=== PATIENT | female | born 1975 | race Caucasian/White ===

== ENCOUNTER 2021-09-25 12:02 | Outpatient (CLI) | payer OTHER, SELFPAY ==
--- OUTSIDE RECORDS SUMMARY | 2021-09-25 12:03 | XMS_ITS | Encounter Summary ---
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 [place], [place] [address] [place], [place] [phone] (Wo rk) Social History Tobacco Use Types Packs/Day Years Used Date Smoking Tobacco: Never Assessed Sex Assigned at Date Recorded Not on file documented as of this encounter Nursing Notes Yola George RN - 05/25/2020 11:39 AM CDT Attempted to reach patient regarding their COVID-19 test results. Message Left to call back to clinic. The patient has viewed their positive results 05/23/2020 @ 12:19 PM. Yola George RN 05/25/2020, 11:39 AM Note: If MyChart Inactive, result letter will be mailed to patient (automatic process, no further action needed by RN). Cindi Jacobo RN - 05/23/2020 4:35 PM CDT Attempted to reach patient regarding their COVID-19 test results. Message Left to call back to clinic. Cindi Grimes RN 05/23/2020, 4:35 PM Janice Linn - 05/23/2020 4:10 PM CDT Lab Results Component Value Date CORONAV Detected (A) 05/22/2020 [id number] documented in this encounter Plan of Treatment Not on filedocumented as of this encounter Visit Diagnoses Not on filedocumented in this encounter Additional Health Concerns Infection Onset Date Last Indicated Resolved Time R/O COVID19 05/22/2020 05/22/2020 05/23/2020 12:19 PM CDT COVID19 05/22/2020 05/22/2020 06/11/2020 3:17 AM CDT documented as of this encounter
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
--- OUTSIDE RECORDS SUMMARY | 2021-09-25 12:03 | XMS_ITS | Encounter Summary ---
:[address] [facility] Address [address], [place] [address] Care Team Providers Name Role Phone Unavailable Primary Care Provider Unavailable Reason for Visit Reason Comments Fever BODY ACHES Encounter Details Date Type Department Care Team Description 05/22/2020 Hospital Encounter [facility] [id number] Micah Jessica MD Fever, unspecified Urgent Care [address] [place] fever cause [address] [place] [address] [id number] Social History Tobacco Use Types Packs/Day Years Used Date Smoking Tobacco: Never Assessed Sex Assigned at Date Recorded Not on file documented as of this encounter Last Filed Vital Signs Vital Sign Reading Time Taken Comments Blood Pressure 130/90 05/22/2020 5:24 PM CDT Pulse 117 05/22/2020 5:24 PM CDT Temperature 38.2 ??C (100.7 ??F) 05/22/2020 5:24 PM CDT Respiratory Rate 16 05/22/2020 5:24 PM CDT Oxygen Saturation 99% 05/22/2020 5:24 PM CDT Inhaled Oxygen Concentration - - Weight - - Height - - Body Mass Index - - documented in this encounter ED Notes Micah Jessica MD - 05/22/2020 6:04 PM CDT Pt here with body aches,headache, fevers to 102.9 at home. Symptoms started 4 with back pain, headache. Tuesday the started having cough, lower grade temps. Today cough is less, but fever is worse. Pt denies any known exposure. Travel to [place] around [place]-12 through [place]-14 via airplane. Denies SOB. She received the [employer] Covid vaccine on 05-05-20. SUBJECTIVE: Kelly Abdi is a 44 y.o.female Chief Complaint: Chief Complaint Patient presents with ??? Fever ??? BODY ACHES HPI: 44 years old female she is coming today to clinic she complained about body ache headache fever 102.9 is started the symptom slightly 3-4 days got worse. She has chills fever minimum cough orno sore throat she did had some diarrhea 2 . She denied that she travel any place at work she is not aware of anybody that had COVID, she denies any short of breath. Medication she took Advil or Tylenol ROS: Complete ROS was negative other than what was cited above. Social History: Social History Tobacco Use ??? Smoking status: Not on file Substance Use Topics ??? Alcohol use: Not on file ??? Drug use: Not on file Past Medical History: There is no problem list on file for this patient. Adverse Drug Reactions: Augmentin [amoxicillin-pot clavulanate] Medications: OBJECTIVE: Vital Signs: BP (!) 130/90 (BP Location: Right Arm, BP Cuff Size: Regular - Long) Pulse (!) 117 Temp (!) 38.2 ??C (100.7 ??F) (Oral) Resp 16 SpO2 99% No . General: Her temperature is 100.7?? Patient generally alert oriented she does not seems to be distressed her vital signs O2 saturation 99% room air her blood pressure is 130/90 her pulse is 117 but she has fever. She denies any chest pain chest tightness HEENT: Both ear clear, nose mucosa slightly inflamed clear discharge, oral cavity pharynx appear normal. Lymphatic: No enlarged lymph Chest: Lungs clear Heart: Slightly tachycardic no murmur Abdomen: Abdomen is soft no rebound no guarding Musculoskeletal: Joints symmetrical for range of motion active passive Skin: No rash Neurological: Touch sensation intact alert oriented Psychiatric: No history anxiety depression Labs: Labs Reviewed 2018 NOVEL CORONAVIRUS X-Rays: No results found. ASSESSMENT: 1. Fever, unspecified fever cause PLAN: Patient agree at this time we will do COVID test the result will be back in 2-4 days now mostly we will use supportive care Tylenol for fever and discomfort, increase p.o. fluid intake, isolate herselfas much as possible good hygiene use the mask wash the hand worse any additional symptom short of breath breathing difficulty go to the emergency room otherwise patient will be informed about the result she agree. Medications - No data to display Medications Prescribed this Visit None Discharge instructions are on file. The patient was discharged ambulatory and in stable condition. documented in this encounter Plan of Treatment Not on filedocumented as of this encounter Procedures Procedure Name Priority Date/Time Associated Diagnosis Comme nts 2019 NOVEL Routine 05/22/2020 5:29 PM Fever, unspecified Res ults for this CORONAVIRUS CDT fever cause procedure are i n the results section. documented in this encounter Results (ABNORMAL) 2018 Novel Coronavirus (COVID-19) (05/22/2020 5:29 PM CDT) [facility] Method Time Signature COVID-19 Detected Not 05/23/2020 [facility] Interpretation (A) Detected 12:19 PM [facility] CDT Specimen Anatomical Collection Method Collection Time Receive d Time (Source) Location / / Volume Laterality Swab (Source Non-blood 05/22/2020 5:29 PM 5:42 Required) Collection / CDT PM CDT Unknown Narrative [facility] - 05/23/2020 12:19 PM CDT Test performed by Environmental Services Project Manager Mediated Amplification. TMA has been shown to be equivalent to commercial real-time PCR t ests. This test has been authorized by the FDA under an Emergency Use Authorization (EUA) for use by authorized laboratories. [facility] Performing Organization Address City/State/ZIP Code Phon e Number [email or web address] [address] [address] documented in this encounter Visit Diagnoses Diagnosis Fever, unspecified fever cause Triage Assessment Note - Vanda Mondragon LPN - 05/22/2020 5:19 PM CDT Pt here with body aches,headache, fevers to 102.9 at home. Symptoms started 4-3-21 with back pain, headache. Tuesday the started having cough, lower grade temps. Today cough is less, but fever is worse. Pt denies any known exposure. Travel to [place] around [place]-12 [place]-14 via airplane. Denies SOB. She received the [employer] Covid vaccine on 05-05-20. documented in this encounter Additional Health Concerns Infection Onset Date Last Indicated Resolved Time R/O COVID19 05/22/2020 05/22/2020 05/23/2020 12:19 PM CDT documented as of this encounter
== END 2021-09-25 12:03 | disposition home or self-care (01) ==
LOC: OP CLINIC 12:02
PROVIDERS: Visit Provider Internal Medicine
DX: Z12.11 Encounter for screening for malignant neoplasm of colon (principal); K57.30 Diverticulosis of large intestine without perforation or abscess without bleeding
CPT/HCPCS: 45378; J2250; J3010